=== PATIENT | male | born 1985 | race Hispanic/Latino ===

== ENCOUNTER 2022-10-09 05:35 | Emergency (ER) | payer BC ==
[~2022-10-09] VITALS: Ht 167.6 cm; Wt 83.9 kg
[2022-10-09] MEDS ORDERED: IBUPROFEN 600 MG TABLET PO ONE (07:00)
[2022-10-09] MEDS ORDERED: AMOXICILLIN 500 MG CAPSULE PO ONE (07:30)
[2022-10-09] MEDS ORDERED: DOXY-469 PO (09:46)
[2022-10-09 09:55] VITALS: BP 121/71
== END 2022-10-09 09:56 | disposition home or self-care (01) ==
LOC: EDH 05:35
DX: S01.21XA Laceration without foreign body of nose, initial encounter (principal); S01.512A Laceration without foreign body of oral cavity, initial encounter; S01.412A Laceration without foreign body of left cheek and temporomandibular area, initial encounter; Y93.89 Activity, other specified; Y08.89XA Assault by other specified means, initial encounter; Y92.098 Other place in other non-institutional residence as the place of occurrence of the external cause; Y99.8 Other external cause status
CPT/HCPCS: 12014; 12051; 70486